=== PATIENT | female | born 2000 | race Asian ===

== ENCOUNTER 2020-12-04 06:23 | Day surgery (SDC) | payer MEDICAID, SELFPAY ==
--- NOTE | 2020-12-03 18:19 | ANES_ITS ---
Date of service: 12/03/20 Time of Service: 18:19 Anesthesia Note Report Anesthesia Note: Anesthesia consulted and created a plan for this 20 yo female patient with severe autism coming in for dental jewish with Dr. Tilley. We discussed options within our department and also included Emergency medicine, the complaint evaluation supervisor, Day Surgery Unit, and Pulmonary Specialist. The patient has had significant challenges with past surgical visits up to potential for self-harm, harm to others, and leading to cancellation. Previous use of oral midazolam resulted in the patient vomiting and seems to be the less desireable option, IM Ketamine seems more desirable for this particular visit. We discussed the proposed plan with Mr. Gavin Burr, the patients father, he denied questions and we received telephone anesthesia consent. The plan is for Anesthesia and OR staff to meet with the patient and family outside the facility at the ambulance entrance while they remain in their car. At that point we plan to administer IM Ketamine to the patient. After the sedation has taken effect we will assist her to the stretcher. The patient will then be moved to the PACU for further intake preoperatively. Anesthesia will be present throughout.
[2020-12-04 06:16] VITALS: BP 113/94; PULSE 104; RESP 17; TEMP 37.5; O2SAT 99
[2020-12-04] MEDS: Lactated Ringers 1,000 ML 30 ML IV (07:06)
[2020-12-04 09:47] VITALS: PULSE 98; RESP 24; TEMP 36.1; O2SAT 100
[2020-12-04 09:52] VITALS: PULSE 89; RESP 19; TEMP 36.1; O2SAT 100
[2020-12-04 09:57] VITALS: PULSE 86; RESP 20; TEMP 36.1; O2SAT 97
[2020-12-04 10:10] VITALS: BP 127/69; PULSE 87; RESP 22; TEMP 36.3; O2SAT 97
[2020-12-04 10:40] VITALS: BP 118/53; PULSE 81; RESP 22; TEMP 36.2; O2SAT 97
--- NOTE | 2020-12-04 13:28 | W.PM.DSUDISC ---
Discharge Plan Disposition Patient Disposition: HOME Condition: Stable Discharge Details Attending Provider: Sherry Tilley Primary Care Provider: Chelo Ruff Home Meds and New Rx's Prescriptions: No Action No Known Home Meds RF: 0 Discharge Instructions Stand Alone Forms: [facility] Dental Activity:: Activity as Tolerated Diet:: cold, soft Discharge Orders Discharge Orders: Discharge Order (Routine); Ordered 12/04/20 Ordered By: Sherry Tilley DS: Diagnosis Discharge Diagnosis (1) Anxiety in acute stress reaction: Status: Acute (2) Dental caries extending into dentin: Status: Acute
--- NOTE | 2020-12-04 13:29 | W.PM.OP ---
Date of service: 12/04/20 Time of Service: 13:29 Operative Note Operative Note DATE OF PROCEDURE: 12/04/20 PRE-OP DIAGNOSIS: dental caries, acute situational anxiety Post dental rehabilitation under general anesthesia PROCEDURE: Dental Rehabilitation under general anesthesia SURGEON: Sherry Tilley ANESTHESIA TYPE: General LMA/ETT Refer to Anesthesia Record ESTIMATED BLOOD LOSS: 15 COMPLICATIONS: None Patient was transported to: PACU Indications: This is a 20 year old female whose previous dental exam was completed on 08/27/2020 in the pediatric dental clinic. ?The lack of cooperative ability and extent of rehabilitation precluded treatment on an outpatient basis. Procedure Description: The patient was brought to the operating room in a supine position. IV of lacted ringers solution was initiated in the right antecutital area of the arm.?A nasotracheal intubation tube was placed in the right nares. The intubation procedure was atraumatic and resulted in a satisfactory level of anesthesia. ? 4 bitewing and 14 periapical intraoral radiographs were taken for diagnostic purposes and reviewed. ?The patient was properly draped for the procedure and 1 throat pack was placed at 7:59 . The oral cavity was disinfected with chlorhexidine and a toothbrush. ?A thorough dental prophylaxis was performed. ?After treatment planning, the following procedures were accomplished under rubber dam isolation: Tooth #2 (upper right second permanent molar)-received a sealant with etch, prime and subramanian elect, clinpro sealant Tooth #3 (upper right first permanent molar)- Tooth #5 (upper right first premolar)- Tooth #12 (upper left first premolar)- received a sealant with etch, prime and subramanian elect, clinpro sealant Tooth #14 (upper left first permanent molar)-received a sealant with etch, prime and subramanian elect, clinpro sealant Tooth #15 (upper left second permanent molar)-received a sealant with etch, prime and subramanian elect, clinpro sealant Tooth #18 (lower left second permanent molar)-received a sealant with etch, prime and subramanian elect, clinpro sealant Tooth #19 (lower left first permanent molar)- received an O composite resin with etch, prime and subramanian elect, TPH shade A2, clinpro sealant Tooth #L (lower left first primary molar)- Tooth extracted in whole via elevator and forceps. Hemostasis achieved via digital pressure and gauze. Tooth #S (lower right first primary molar)- Tooth extracted in whole via elevator and forceps. Hemostasis achieved via digital pressure and gauze Tooth #30 (lower right first permanent molar)-Received an O composite resin with etch, prime and subramanian elect, TPH shade A2, clinpro sealant Tooth #31 (lower right second permanent molar)- Received an O composite resin with etch, prime and subramanian elect, TPH shade A2, clinpro sealant Approximately 0.7 mL of 2% Lidocaine with 1:100,000 epinephrine was administered as local anesthetic. ? The oral cavity was then thoroughly irrigated with sterile water and disinfected with chlorhexidine, suctioned clear. ?A topical application of 5% neutral sodium fluoride varnish was applied. ?The throat pack was removed at 9:12 . Approximately 500 mL of lactated ringers was delivered as intraoperative fluids. The patient was extubated in the operating room and brought to the recovery room breathing spontaneously and in satisfactory condition. Attestation Statement: I was present and assisting for the entire procedure.
== END 2020-12-04 10:48 | disposition home or self-care (01) ==
PROVIDERS: PCP Nurse Practitioner Adult Health; Visit Provider Dentist Pediatric Dentistry
PROC: (CPT 41899; principal; 2020-12-04 07:30)
DX: K02.62 Dental caries on smooth surface penetrating into dentin (principal); F41.1 Generalized anxiety disorder; F43.8 Other reactions to severe stress
CPT/HCPCS: D1110; D1351 ×5; D7140 ×2; J2001; J2250